=== PATIENT | female | born 1995 | race Caucasian/White ===

== ENCOUNTER 2017-11-28 04:50 | Inpatient (IN) | payer OTHER ==
[2017-11-28] MEDS ORDERED: XYLOCAINE 2% INFILTRATI ONE ×2 (06:12→12:25)
[2017-11-28] MEDS ORDERED: BRETHINE SUB-Q PRN (06:12)
[2017-11-28] MEDS ORDERED: BRETHINE IVP PRN (06:12)
[2017-11-28] MEDS ORDERED: MINERAL OIL PO PRN (06:12)
[2017-11-28] MEDS ORDERED: ePHEDrine SULFATE IV PRN (06:12)
[2017-11-28] MEDS ORDERED: STADOL IV PRN (06:12)
[2017-11-28] MEDS ORDERED: SUBLIMAZE IV PRN (06:12)
[2017-11-28 06:58] LABS: Hemoglobin 12.7 gm/dl (10.1-14.3); Mean Corpuscular HGB Conc 34 % (30-34); Mean Corpuscular Hemoglobin 32 pg (28-32); Mean Corpuscular Volume 93 fl (79-97); Platelet Count 168 K/mm3 (140-440); Red Cell Distribution Width 14.5 % (13.2-15.2)
[2017-11-28] MEDS ORDERED: LACTATED RINGERS 1,000 ML IV SCH (07:00)
[2017-11-28] MEDS ORDERED: PITOCin/NS 20 UNIT/1000ML DRIP 20 UNITS/1,000 ML BAG IV SCH (07:00)
[2017-11-28] MEDS ORDERED: PITOCin/NS 30 UNIT/500ML 30 UNITS/500 ML BAG IV SCH (08:00)
--- NOTE | 2017-11-28 09:43 | History and Physical Report ---
History of Present Illness Date of examination: 11/28/17 Date of admission: 11/28/17 08:04 Chief complaint: My water broke around 4:OOAM; the fluid was clear History of present illness: Early entry into care at [facility]. course was uncomplicated. Past History Past Medical History: no pertinent history Past Surgical History: no surgical history Family/Genetic History: diabetes (Paternal grandparents), cancer (Aunt: Thyroid Ca) Social history: no significant social history, single - Obstetrical History Expected Date of Delivery: 11/25/17 Actual Gestation: 40 Week(s) 3 Day(s) : 4 Para: 2 Hx # Term Pregnancies: 2 Spontaneous Abortions: 1 Number of Living Children: 2 #1 Gender: Male year: 2,[birth year] Birthweight: 2600 kg Method of Delivery: Vaginal Gestational age at delivery: 40 Complications: other (PP Hemmorhage) #2 Infant Gender: Male year: 2,[birth year] Birthweight: 2800 kg Method of Delivery: Vaginal Gestational age at delivery: 40 Complications: other (PP Hemmorrage and Seizure) Medications and Allergies Allergies Allergy/AdvReac Type Severity Reaction Status Date / Time No Known Allergies Allergy Unverified 11/28/17 05:42 Active Meds: Active Medications Butorphanol Tartrate (Stadol) 2 mg IV Q2H PRN PRN Reason: Pain , Severe (7-10) Ephedrine Sulfate (Ephedrine Sulfate) 10 mg IV Q2M PRN PRN Reason: Hypotension Fentanyl (Sublimaze) 100 mcg IV Q2H PRN PRN Reason: Labor Pain Lactated Ringer's (Lactated Ringers) 1,000 mls @ 125 mls/hr IV DIRECT PHUONG Last Admin: 11/28/17 09:18 Dose: 125 mls/hr Oxytocin/Sodium Chloride (Pitocin/Ns 20 Unit/1000ml Drip) 20 units in 1,000 mls @ 125 mls/hr IV DIRECT PHUONG Oxytocin/Sodium Chloride (Pitocin/Ns 30 Unit/500ml) 30 units in 500 mls @ 0 mls /hr IV TITR PHUONG; Protocol Last Admin: 11/28/17 09:18 Dose: 4 ml/hr, 4 mls/hr Mineral Oil (Mineral Oil) 30 ml PO QHS PRN PRN Reason: Constipation Terbutaline Sulfate (Brethine) 0.25 mg SUB-Q ONCE PRN PRN Reason: Hyperstimulation/Hypertonicity Terbutaline Sulfate (Brethine) 0.25 mg IVP ONCE PRN PRN Reason: Hyperstimulation/Hypertonicity Review of Systems All systems: negative - Vital Signs Vital signs: Vital Signs Pulse Pulse Ox 170 H 83 L 11/28/17 05:04 11/28/17 05:04 Temp Pulse Resp BP Pulse Ox 98.3 F 71 16 113/76 98 11/28/17 07:00 11/28/17 08:00 11/28/17 07:00 11/28/17 07:55 11/28/17 08:00 - Physical Exam Breasts: Positive: normal Cardiovascular: Regular rate Lungs: Positive: Clear to auscultation, Normal air movement Abdomen: Positive: normal appearance, soft, normal bowel sounds Genitourinary (Female): Positive: normal external genitalia, normal perenium Vagina: Positive: normal moisture Uterus: Positive: enlarged Anus/Rectum: Positive: normal perianal skin - Obstetrical FHR: category 1 Uterine Contraction Monitor Mode: External Cervical Dilatation: 3 (leaking a moderate amount of clear fluid) Cervical Effacement Percentage: 80 station: -3 Uterine Contraction Frequency (min): 3 Uterine Contraction Pattern: Regular Uterine Contraction Intensity: Moderate Results Result Diagrams: 11/28/17 06:38 All other labs normal. Assessment and Plan A: IUP @ 40 3/7 Weeks Category I Tracing SROM GBS Negative P: Admit to L&D per routine orders Pitocin Augmentation
[2017-11-28] MEDS ORDERED: CYTOTEC ONE (12:35)
[2017-11-28] MEDS ORDERED: CYTOTEC PR ONE (12:35)
[2017-11-28] MEDS ORDERED: BENADRYL PO PRN (12:46)
[2017-11-28] MEDS ORDERED: TUCKS PAD TP PRN (12:46)
[2017-11-28] MEDS ORDERED: LANSINOH TP PRN (12:46)
[2017-11-28] MEDS ORDERED: PHENERGAN PR PRN (12:46)
[2017-11-28] MEDS ORDERED: NORCO 5/325 PO PRN (12:46)
[2017-11-28] MEDS ORDERED: MILK OF MAGNESIA PO PRN (12:46)
--- NOTE | 2017-11-28 12:55 | Procedure Note ---
OB Delivery Note - Delivery Date of Delivery: 11/28/17 (1218) Surgeon: SANCHEZ MACKAY Estimated blood loss: 300cc - Vaginal Delivery presentation: vertex Delivery position: OA Intrapartum events: none Delivery induction: oxytocin Delivery augmentation: pitocin Delivery monitor: external FHT, external uterine Route of delivery: Delivery placenta: spontaneous Delivery cord: 3 umbilical vessels Episiotomy: none Delivery laceration: 1st degree Delivery repair: vicryl Anesthesia: local Delivery comments: of a live 7'11 female infant over a 1st degree perineal laceration under IV pain control with Apgars of 8 and 9 at 1218 on 11/28/2017. directly to maternal abd/chest, skin to skin contact. Spontaneous delivery of placenta complete and intact with Torres side presenting at 1222. Fundus is firm and midline located 5 below the U. Lochia is scant. 600mcg of Cytotec placed rectally. Perineal laceration repaired with 2-0 vicryl on a SH under local 2% Lidocaine. Delayed cord clamping and cutting; Cord cut by maternal grandmother. Cord blood collected; placenta discarded.
[2017-11-28] MEDS ORDERED: SODIUM CHLORIDE FLUSH SYRINGE 10 ML IV NR (13:00)
[2017-11-28] MEDS ORDERED: DULCOLAX PR PRN (13:00)
[2017-11-28] MEDS: MOTRIN PO SCH ×2 (14:23→23:56)
[2017-11-29 00:31] LABS: Hematocrit 35.2 % (30.3-42.9); Hemoglobin 11.7 gm/dl (10.1-14.3)
[2017-11-29] MEDS ORDERED: BOOSTRIX IM ONE (05:55)
[2017-11-29] MEDS ORDERED: MOTRIN PO SCH (06:00)
--- NOTE | 2017-11-29 10:07 | Progress Note ---
Assessment and Plan A: PPD#1 s/p Pain well controlled Stable P: Routine PP care Encouraged ambulation in room Discharge home in am Subjective - Subjective Date of service: 11/29/17 Principal diagnosis: Interval history: See H&P and delivery note Patient reports: appetite normal, voiding normally, pain well controlled, flatus , ambulating normally [place]: doing well Objective - Vital Signs Latest vital signs: Vital Signs Temp Pulse Resp BP BP Pulse Ox 11/29/17 07:53 97.9 F 66 20 96/55 96 11/29/17 05:43 98.5 F 70 20 107/59 98 11/28/17 22:40 98.7 F 84 18 105/66 95 11/28/17 16:50 98.2 F 78 20 109/74 11/28/17 15:10 98.2 F 71 16 107/67 99 11/28/17 14:53 72 98 11/28/17 14:48 73 108/61 99 11/28/17 14:45 99.1 F 20 11/28/17 14:44 66 106/59 11/28/17 14:43 73 100 11/28/17 14:18 68 105/59 11/28/17 14:03 76 110/54 11/28/17 13:38 97.9 F 18 11/28/17 13:33 76 104/65 11/28/17 13:18 78 103/63 11/28/17 13:03 83 111/73 11/28/17 12:48 90 110/46 11/28/17 12:33 85 106/53 11/28/17 12:20 77 120/72 11/28/17 11:06 67 133/61 11/28/17 11:00 98.2 F 20 Intake and Output 11/28/17 11/29/17 11/29/17 23:59 07:59 15:59 Intake Total 720 120 Output Total 450 1400 Balance 270 -1280 Intake: Oral 360 120 Intake, Free Water 360 Output: Urine 450 1400 Indwelling Catheter 1400 Void 450 Other: Total, Intake Amount 360 120 Total, Output Amount 450 600 # Voids Void 1 - Exam Breasts: Present: normal Cardiovascular: Present: Regular rate, Normal S1, Normal S2 Lungs: Present: Clear to auscultation, Normal air movement Abdomen: Present: normal appearance, soft, normal bowel sounds. Absent: distention Vulva: both: normal, laceration/episiotomy (1st degree; well approximated) Uterus: Present: firm, fundal height below umbilicus (-1) Extremities: Present: normal Deep Tendon Reflex Grade: Normal +2
--- NOTE | 2017-11-29 10:08 | Discharge Summary ---
Providers - Providers Date of Admission: 11/28/17 08:04 Date of discharge: 11/30/17 Attending physician: SVETLANA PEPE MD Primary care physician: SVETLANA PEPE MD Hospitalization Reason for admission: active labor, IUP at term Delivery: Procedure details: See delivery note Episiotomy: none Laceration: 1st degree (well approximated) Other procedures: none complications: none Discharge diagnosis: IUP at term delivered [place] baby: female Condition at discharge: Good Disposition: DC-01 TO HOME OR SELFCARE Plan - Provider Discharge Summary Activity: routine, no sex for 6 weeks, no heavy lifting 4 weeks, no strenuous exercise Diet: routine Instructions: routine Additional instructions: [] Smoking cessation referral if applicable(refer to patient education folder for contact #) [] Refer to [facility] Booklet Call your doctor immediately for: * Fever > 100.5 * Heavy vaginal bleeding ( >1 pad per hour) * Severe persistent headache * Shortness of breath * Reddened, hot, painful area to leg or breast * Drainage or odor from incision. * Keep incision clean and dry at all times and follow doctor's instructions regarding bathing/showering - Follow up plan Follow up: SVETLANA PEPE MD [Primary Care Provider] - 6 Weeks
[2017-11-29 15:25] VITALS: BP 107/76
== END 2017-11-29 15:30 | disposition home or self-care (01) | DRG 775 ==
LOC: TRG 04:50 → LD 08:04 → OB 15:08
PROVIDERS: ADMIT Obstetrics & Gynecology; ATTEND Obstetrics & Gynecology
PROC: 10E0XZZ Delivery of Products of Conception, External Approach (ICD-10-PCS; principal; 2017-11-28)
PROC: 0HQ9XZZ Repair Perineum Skin, External Approach (ICD-10-PCS; 2017-11-28)
PROC: 3E033VJ Introduction of Other Hormone into Peripheral Vein, Percutaneous Approach (ICD-10-PCS; 2017-11-28)
DX: O70.0 First degree perineal laceration during delivery (principal); Z3A.40 40 weeks gestation of pregnancy; Z37.0 Single live birth; Z83.3 Family history of diabetes mellitus; Z80.8 Family history of malignant neoplasm of other organs or systems
CPT/HCPCS: 36415; 85014; 85018; 85027; 86592; 86850; 86900; 86901; 90715; 99211; G0463; J2590; J3010; J7120